=== PATIENT | female | born 1985 | race Caucasian/White ===

== ENCOUNTER 2024-05-09 07:51 | Outpatient (RCR) | payer BC, SELFPAY ==
--- NOTE | 2024-05-09 09:58 | HP.PTEVAL_ITS ---
Patient's Visit Information Visit Information Visit Information: ALEXSANDRA LAW is a 39 year old F referred to Physical Therapy by HENOK BERMEO with a diagnosis of Right Shoulder SAD RTC Debridement 03/24/24. Date of Evaluation: 05/09/24 Physical Therapist: Yamila Jonas DPT Visit Plan Frequency: 1x/Week Duration: 6 Weeks Plan: Pt to perform HEP and call if questions HEP Given IE: Table Walk Away, Mid Row, LAE, IR/ER, Lat Pull Down Subjective Subjective: Right shoulder- over a year she tore it and then had surgery about [address] 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 She was having pain so they wrote her off again due to N/T and pain. She then returned to MD last week and they sent her to PT and returned her to work tomorrow. She was given some exercises but still lacks some range of motion. She goes to the gym and did some ellip and swimming. Worst: 3/10 Pain is along the top of the shoulder and down the deltoid. She has no pain past the elbow. No pain into the neck or shoulder blade. Sleep: hard to get comfortable. The pain is dull and achy. She goes to the [facility] in [place]. She is looking to get back to all of her normal stuff. Right hand dominate. Objective Objective: Posture: scoliotic- mild guarding of the right shoulder Palpation: mild tenderness in the bicipital groove Range of Motion: Cervical: WNL, Elbow/Wrist: WNL, Shoulder: Flexion/Abd: WNL-ti ghtness at end range, IR: WNL, ER: 40 degrees Strength: Scap: fair, Elbow: 5/5, Lot Associate: equal to other side, Shoulder: Flexion/Abd: 4+/5, IR/ER: 4+/5, Extn: 5/5. Balance/Special Test Scores Quick DASH Score: 25.0000 Goals Goal 1:: Patient will be I with HEP and progression Goal Time Frame: 4-6 Weeks Rehabilitation Potential Physical Therapy Diagnosis: Patient has good range of motion with mild tightness at end range, mild decrease in scapular strength/stabilization s/p surgical intervention. Rehabilitation Potential: Excellent Anticipated Interventions Patient/Client Instruction: Educate patient on: Benefits of Fitness Program Therapeutic Exercise to Include: Strength training, Endurance training, Coordination, Agility training, Body mechanics, Postural training, Flexibilty training, Neuromotor development, Passive ROM, Active ROM and Scapular Strength/Stabilization For the Purpose of:: To improve muscle performance and motor function Manual Therapy Techniques to Include: Soft tissue mobilization Text: Thank you for the opportunity to evaluate your patient. For Medicare and Medicare HMO plans, please review the plan of care and approve it. It will need to be FAXED BACK to us at [phone] for Medicare purposes. For Medicare only, by signing this I certify the plan of care. Please let me know if there are questions or concerns regarding this plan of care. Physician Signature: Date:
--- NOTE | 2024-06-08 14:30 | HP.PT.NRP ---
Patient Information Patient Information: ALEXSANDRA LAW was seen in my office for initial evaluation on 05/09/24. The following Plan of Care was established for this patient: POC Established Initial Frequency: 1x/Week Initial Duration: 6 Weeks Anticipated Interventions Patient/Client Instruction: Educate patient on: Benefits of Fitness Program Therapeutic Exercise to Include: Strength training, Endurance training, Coordination, Agility training, Body mechanics, Postural training, Flexibilty training, Neuromotor development, Passive ROM, Active ROM and Scapular Strength/Stabilization For the Purpose of:: To improve muscle performance and motor function Manual Therapy Techniques to Include: Soft tissue mobilization Last Seen Last Seen: This patient was last seen in our office . Pertinent comments regarding their Physical therapy will appear below: Patient is independent with home exercise program and is appropriate to be discharge from PT At this point I will be discontinuing this patient from physical therapy. I would be happy to see this patient again in the future if found appropriate by the physician. Thank you! Yamila Jonas, ISABELT Balance/Gait/Functional tests Balance/Special Test Scores Quick DASH Score: 25.0000
== END 2024-05-09 19:00 | disposition home or self-care (01) ==
LOC: PT 07:51
DX: M75.51 Bursitis of right shoulder (principal); M75.41 Impingement syndrome of right shoulder
CPT/HCPCS: 97110; 97162